=== PATIENT | male | born 1950 | race Caucasian/White ===

== ENCOUNTER 2017-03-23 12:01 | Outpatient (CLI) | payer MEDICARE, OTHER ==
[2014-07-23 10:56] VITALS: BP 103/69
[2017-03-23 12:21] LABS: BASOPHILS % 0.8 (0.0-1.5); EOSINOPHILS % 2.5 % (0.0-6.8); MEAN CORPUSCULAR HEMOGLOBIN 27.6 pg (28.0-34.0); MEAN CORPUSCULAR VOLUME 84.5 fl (80.0-100.0); MONOCYTES % 5.3 % (0.0-11.0); NEUTROPHILS # 5.7 # k/uL (1.4-7.7)
[2017-03-23 16:32] LABS: eGFR (African) > 60; eGFR (Non-African) 59
== END 2017-03-23 12:02 ==
LOC: LAB 12:01
PROVIDERS: ATTEND Family Medicine
DX: Z51.81 Encounter for therapeutic drug level monitoring (principal); Z79.899 Other long term (current) drug therapy; I10 Essential (primary) hypertension
CPT/HCPCS: 36415; 80053; 80162; 85025